=== PATIENT | female | born 1985 | race Caucasian/White ===

== ENCOUNTER → 2016-12-29 | Outpatient (CLI) | payer OTHER ==
--- NOTE | ~2016-12-29 | US128 ---
[id number] [address] [id number] O MR#: [id number] Acc #: [id number] NAME: TABBY HICKS : 1985 SEX: F STUDY DATE/TIME: 12/29/2016 15:07 UNIT: [facility] ROOM: STUDY DESCRIPTION: Thyroid Attending Physician: Rey Steinberg M.D. Referring Physician: Rey Steinberg M.D. Ordering Physician: Rey Steinberg M.D. Primary Care Physician: Rey Steinberg M.D. MEDICAL IMAGING REPORT This report is preliminary unless electronic signature is present. EXAM Thyroid ultrasound, 12/29/2016. HISTORY Enlarged thyroid on physical examination 1 week ago, thyromegaly. Hypertension. FINDINGS The right thyroid lobe measured 4.8 cm x 1.9 cm x 1.6 cm while the left lobe measured 4.5 cm x 1.4 cm x 1.2 cm. The isthmus measured 6 mm in the AP direction. There is a 5 mm hypoechoic nodule in the upper pole of the right thyroid lobe. The thyroid is otherwise homogeneous in echotexture. There are no masses extrinsic to the thyroid. Normal blood flow is seen throughout both thyroid lobes. IMPRESSION 5 mm nodule upper pole right thyroid lobe. Otherwise negative thyroid ultrasound. Dictated by... Alberto Dowling M.D. THIS IS AN ELECTRONICALLY VERIFIED REPORT Alberto Dowling M.D. at 12/30/2016 6:17 AM CORTNEY/rony TD: 12/29/2016 23:14 JOB #: [id number] MEDICAL IMAGING REPORT Page 1 of 1
== END | disposition home or self-care (01) ==
LOC: SGUS 15:04
DX: E04.0 Nontoxic diffuse goiter (principal); E66.01 Morbid (severe) obesity due to excess calories; I10 Essential (primary) hypertension; E04.1 Nontoxic single thyroid nodule
CPT/HCPCS: 76536